=== PATIENT | male | born 1985 | race Caucasian/White ===

== ENCOUNTER 2017-01-05 04:39 | Emergency (ER) | payer MEDICARE, MEDICAID ==
[2017-01-05 05:44] LABS: PROTHROMBIN TIME (TEST) 10.4 SECONDS (9.5-11.5)
[2017-01-05 05:48] LABS: ALB/GLOB RATIO 1.4 (1.0-1.8); ALKALINE PHOSPHATASE 60 U/L (34-104); BUN - UREA NITROGEN 14 mg/dL (7-25); CALCIUM SERUM 9.5 mg/dL (8.6-10.3); CARBON DIOXIDE 25.6 mEq/L (21.0-31.0); CHLORIDE 105 mEq/L (98-107); CREATININE - SERUM 0.7 mg/dL (0.7-1.3); GLUCOSE 129 mg/dL (70-105); POTASSIUM SERUM 3.6 mEq/L (3.5-5.1); SGOT 18 U/L (13-39); SGPT/ALT 30 U/L (7-52); SODIUM SERUM 134 mEq/L (136-145)
[2017-01-05 05:49] LABS: % BASOPHILS 0.6 % (0.0-2.0); % EOSINOPHILS 4.8 % (0.0-5.0); % LYMPHOCYTES 30.9 % (20.0-50.0); % NEUTROPHILS 56.7 % (40.0-80.0); HEMATOCRIT 43.2 % (39.0-49.0); HEMOGLOBIN 14.8 gm/dL (13.2-17.3); MEAN CELL VOLUME 80.7 fl (80-99); MEAN CORPUSCULAR HEMOGLOBIN 27.6 pg (26.0-30.0); MEAN CORPUSCULAR HGB CONC 34.2 pg (28.0-36.0); MEAN PLATELET VOLUME 7.6 fl; NEUTROPHILE ABSOLUTE 7.2 Th/cmm (1.8-8.0); PLATELET COUNT 238 Th/cmm (150-400); RED BLOOD COUNT 5.35 Mil/cmm (4.30-5.70); RED CELL DISTRIBUTION WIDTH 12.8 % (11.5-20.0)
[2017-01-05 06:00] LABS: WHITE BLOOD COUNT 12.8 Th/cmm (4.8-10.8)
--- NOTE | 2017-01-05 06:28 | ED Physician Chart ---
Chief Complaint/HPI - Patient Information Date Seen:: 01/05/17 Time Seen:: 04:59 Chief Complaint:: SUICIDAL History of Present Illness:: THIS IS A 31 YO MALE WHO STATES THAT HE IS SUICIDAL AND WANTS TO KILL HIMSELF. HE HAS BEEN HERE MULTIPLE TIME FOR THE SAME REASON. HE DENIES HEAD PAIN, CHEST PAIN AND ABDOMINAL PAIN. Allergies:: Allergies Allergy/AdvReac Type Severity Reaction Status Date / Time No Known Allergies Allergy Verified 06/04/16 20:48 Vitals:: Vital Signs - 8 hr 01/05/17 04:51 Temp 98.3 F HR 71 RR 19 BP 132/76 O2 Sat % 99 Historian:: Patient Review:: Nurse's Note Reviewed, Old Chart Reviewed Review of Systems - Review of Systems General/Constitutional: No fever, No chills, No weight loss, No weakness, No diaphoresis, No edema, Loss of appetite Skin: No skin lesions, No rash, No bruising Head: No headache, No light-headedness Eyes: No loss of vision, No pain, No diplopia ENT: No earache, No nasal drainage, No sore throat, No tinnitus Neck: No neck pain, No swelling, No thyromegaly, No stiffness, No mass noted Cardio Vascular: No chest pain, No palpitations, No PND, No orthopnea, No edema Pulmonary: No SOB, No cough, No sputum, No wheezing GI: No nausea, No vomiting, No diarrhea, No pain, No melena, No hematochezia, No constipation, No hematemesis G/U: No dysuria, No frequency, No hematuria Musculoskeletal: No bone or joint pain, No back pain, No muscle pain Endocrine: No polyuria, No polydipsia Psychiatric: Prior psych history, No depression, No anxiety, Suicidal ideation Hematopoietic: No bruising, No lymphadenopathy Allergic/Immuno: No urticaria, No angioedema Neurological: No syncope, No focal symptoms, No weakness, No paresthesia, No headache, No seizure, No dizziness, No confusion, No vertigo Past Medical History - Past Medical History Obtainable: Yes Past Medical History: Thyroid disorder Family History: None Social History: Smoker, Alcohol, Illicit Drug Use, Lives With Parents Surgical History: None Psychiatricy History: Schizophrenia, Bipolar Medication: Reviewed Family Medical History - Family Member Mother History Unknown: Yes Ethnicity: Non- Living Status: Still Living Hx Family Cancer: No Hx Family Coronary Artery Disease: No Hx Family Congestive Heart Failure: No Hx Family Hypertension: No Hx Family Stroke: No Hx Family Diabetes: Yes Hx Family Seizures: No Hx Family Dementia: No Hx Family AIDS: No Hx Family HIV: No Hx Family COPD: No Hx Family Hepatitis: No Hx Family Psychiatric Problems: No Hx Family Tuberculosis: No Grandmother History Unknown: Yes Ethnicity: Non- Living Status: Unknown Hx Family Diabetes: Yes Physical Exam - Physical Examination General/Constitutional: Awake, Well-developed, well-nourished, Alert, No distress, GCS 15, Non-toxic appearing, Ambulatory Head: Atraumatic Eyes: Lids, conjuctiva normal, PERRL, EOMI Skin: Nl inspection, No rash, No skin lesions, No ecchymosis, Well hydrated, No lymphadenopathy ENMT: External ears, nose nl, Nasal exam nl, Lips, teeth, gums nl Neck: Nontender, Full ROM w/o pain, No JVD, No nuchal rigidity, No bruit, No mass, No stridor Respiratory: Nl effort/Exclusion, Clear to Auscultation, No Wheeze/Rhonchi/Rales Cardio Vascular: RRR, No murmur, gallop, rubs, NL S1 S2 GI: No tenderness/rebounding/guarding, No organomegaly, No hernia, Normal BS's, Nondistended, No mass/bruits, No McBurney tenderness : No CVA tenderness Extremities: No tenderness or effusion, Full ROM, normal strength in all extremities, No edema, Normal digits & nails Neuro/Psych: Alert/oriented, DTR's symmetric, Normal sensory exam, Normal motor strength, Normal gait, No focal deficits Other Neuro/Psych comments:: DEPRESSED MOOD Misc: normal gait, Normal back, No paraspinal tenderness Labs/Radiology/EKG Results - Lab Results Results: Laboratory Tests 01/05/17 01/05/17 01/05/17 05:10 05:10 05:10 WBC 12.8 H RBC 5.35 Hgb 14.8 Hct 43.2 MCV 80.7 MCH 27.6 MCHC Differential 34.2 RDW 12.8 Plt Count 238 MPV 7.6 Neutrophils % 56.7 Lymphocytes % 30.9 Monocytes % 7.0 Eosinophils % 4.8 Basophils % 0.6 PT 10.4 INR 1.00 Sodium 134 L Potassium 3.6 Chloride 105 Carbon Dioxide 25.6 Anion Gap 7.0 BUN 14 Creatinine 0.7 Est GFR ( Amer) > 60.0 Est GFR (Non-Af Amer) > 60.0 BUN/Creatinine Ratio 20.0 Glucose 129 H Calcium 9.5 Total Bilirubin 1.0 AST 18 ALT 30 Alkaline Phosphatase 60 Troponin I Total Protein 7.6 Albumin 4.4 Globulin 3.2 Albumin/Globulin Ratio 1.4 Salicylates Acetaminophen Ethyl Alcohol 01/05/17 01/05/17 01/05/17 05:10 05:10 05:10 WBC RBC Hgb Hct MCV MCH MCHC Differential RDW Plt Count MPV Neutrophils % Lymphocytes % Monocytes % Eosinophils % Basophils % PT INR Sodium Potassium Chloride Carbon Dioxide Anion Gap BUN Creatinine Est GFR ( Amer) Est GFR (Non-Af Amer) BUN/Creatinine Ratio Glucose Calcium Total Bilirubin AST ALT Alkaline Phosphatase Troponin I 0.01 Total Protein Albumin Globulin Albumin/Globulin Ratio Salicylates Acetaminophen < 10.0 L Ethyl Alcohol < 10 01/05/17 05:10 WBC RBC Hgb Hct MCV MCH MCHC Differential RDW Plt Count MPV Neutrophils % Lymphocytes % Monocytes % Eosinophils % Basophils % PT INR Sodium Potassium Chloride Carbon Dioxide Anion Gap BUN Creatinine Est GFR ( Amer) Est GFR (Non-Af Amer) BUN/Creatinine Ratio Glucose Calcium Total Bilirubin AST ALT Alkaline Phosphatase Troponin I Total Protein Albumin Globulin Albumin/Globulin Ratio Salicylates < 25.0 L Acetaminophen Ethyl Alcohol Assessment - Assessment General Assessment: SUICIDAL ED Septic Shock - . Is Septic Shock (SBP<90, OR Lactate>4 mmol\L) present?: No - <6hrs of presentation: Vital Signs: Vital Signs - 8 hr 01/05/17 04:51 Temp 98.3 F HR 71 RR 19 BP 132/76 O2 Sat % 99 Reassessment (Disposition) - Reassessment Reassessment Condition:: Unchanged - Diagnosis Diagnosis:: SUICIDAL - Patient Disposition Discussion with Medical Provider:: THIS PATIENT WILL BE CARED FOR BY DR. FRANCIS STARTING AT 0700 HRS. ED Discharge Plan - Patient Disposition Condition at Disposition: Unchanged Additional Instructions: THE PATIENT WILL NEED THE URINE FOR DRUG SCREEN BEFORE HE IS CLEARED MEDICALLY. DR. FRANCIS WILL CARE FOR THE PATIENT STARTING AT 0700 HRS.
--- NOTE | 2017-01-05 07:53 | ED Physician Chart ---
Chief Complaint/HPI - Patient Information Date Seen:: 01/05/17 Time Seen:: 07:00 Chief Complaint:: SUICIDAL IDEATION History of Present Illness:: This 31-year-old male drove himself to the hospital and complains of depression and wanting to commit suicide. He has had multiple prior attempts and currently he is thinking about killing himself with carbon monoxide. He denies any recent fever, chills, diaphoresis or acute illness. He has a past medical history of depression, hypothyroidism and hypertension. He denies any pain, nausea, vomiting or diarrhea. No respiratory distress, weakness or dizziness. Allergies:: Allergies Allergy/AdvReac Type Severity Reaction Status Date / Time No Known Allergies Allergy Verified 06/04/16 20:48 Vitals:: Vital Signs - 8 hr 01/05/17 01/05/17 04:51 07:01 Temp 98.3 F 98.2 F HR 71 66 RR 19 17 BP 132/76 127/83 O2 Sat % 99 98 Review of Systems - Review of Systems General/Constitutional: No fever, No chills, No diaphoresis, No edema Skin: No skin lesions, No bruising Head: No headache, No light-headedness Eyes: No loss of vision, No diplopia ENT: No earache, No sore throat, No tinnitus Neck: No neck pain, No thyromegaly, No stiffness, No mass noted Cardio Vascular: No chest pain, No palpitations, No edema Pulmonary: No SOB, No cough, No sputum, Other (no hemoptysis.) GI: No nausea, No vomiting, No diarrhea, No pain G/U: No dysuria, No frequency Lobby Concierge: No contraction Musculoskeletal: Bone or joint pain, No back pain, No muscle pain Endocrine: No polyuria Psychiatric: Prior psych history Neurological: No syncope, No weakness, No headache, No seizure, No confusion Family Medical History - Family Member Mother History Unknown: Yes Ethnicity: Non- Living Status: Still Living Hx Family Cancer: No Hx Family Coronary Artery Disease: No Hx Family Congestive Heart Failure: No Hx Family Hypertension: No Hx Family Stroke: No Hx Family Diabetes: Yes Hx Family Seizures: No Hx Family Dementia: No Hx Family AIDS: No Hx Family HIV: No Hx Family COPD: No Hx Family Hepatitis: No Hx Family Psychiatric Problems: No Hx Family Tuberculosis: No Grandmother History Unknown: Yes Ethnicity: Non- Living Status: Unknown Hx Family Diabetes: Yes Physical Exam - Physical Examination General/Constitutional: Well-developed, well-nourished, No distress Other Gen/Cons comments:: Patient very vague about why he is here and what his intentions are. No acute distress. Is not homeless and lives with a friend of his mother's. Head: Atraumatic Other Head comments:: No visible or palpable evidence of acute head injury. Eyes: Lids, conjuctiva normal, PERRL, EOMI Other Eyes comments:: No nystagmus and no scleral icterus. Skin: Nl inspection, No rash, No skin lesions, No ecchymosis, Well hydrated ENMT: External ears, nose nl, Nasal exam nl, Lips, teeth, gums nl, Oropharynx nl , Tonsils nl Neck: Nontender, No JVD, No nuchal rigidity, No mass Respiratory: Nl effort/Exclusion, Clear to Auscultation, No Wheeze/Rhonchi/Rales Cardio Vascular: RRR, No murmur, gallop, rubs, NL S1 S2 Other Cardio Vascular comments:: Good pulses all 4 extremities. GI: No tenderness/rebounding/guarding, No organomegaly, No hernia, Nondistended , No mass/bruits, No McBurney tenderness Other GI comments:: Rectal exam deferred at my discretion. : No CVA tenderness Extremities: No tenderness or effusion, normal strength in all extremities, No edema Other Extremities comments:: The patient was oriented to his name and the fact that he was in a hospital but he thinks that it September 2004. Neuro/Psych: DTR's symmetric, Normal sensory exam, Normal motor strength, No focal deficits Misc: Normal back, No paraspinal tenderness Labs/Radiology/EKG Results - Lab Results Results: Laboratory Tests 01/05/17 01/05/17 01/05/17 05:10 05:10 05:10 WBC 12.8 H RBC 5.35 Hgb 14.8 Hct 43.2 MCV 80.7 MCH 27.6 MCHC Differential 34.2 RDW 12.8 Plt Count 238 MPV 7.6 Neutrophils % 56.7 Lymphocytes % 30.9 Monocytes % 7.0 Eosinophils % 4.8 Basophils % 0.6 PT 10.4 INR 1.00 Sodium 134 L Potassium 3.6 Chloride 105 Carbon Dioxide 25.6 Anion Gap 7.0 BUN 14 Creatinine 0.7 Est GFR ( Amer) > 60.0 Est GFR (Non-Af Amer) > 60.0 BUN/Creatinine Ratio 20.0 Glucose 129 H Whole Bld Lactic Acid Calcium 9.5 Total Bilirubin 1.0 AST 18 ALT 30 Alkaline Phosphatase 60 Troponin I Total Protein 7.6 Albumin 4.4 Globulin 3.2 Albumin/Globulin Ratio 1.4 TSH Salicylates Acetaminophen Ethyl Alcohol 01/05/17 01/05/17 01/05/17 05:10 05:10 05:10 WBC RBC Hgb Hct MCV MCH MCHC Differential RDW Plt Count MPV Neutrophils % Lymphocytes % Monocytes % Eosinophils % Basophils % PT INR Sodium Potassium Chloride Carbon Dioxide Anion Gap BUN Creatinine Est GFR ( Amer) Est GFR (Non-Af Amer) BUN/Creatinine Ratio Glucose Whole Bld Lactic Acid Calcium Total Bilirubin AST ALT Alkaline Phosphatase Troponin I 0.01 Total Protein Albumin Globulin Albumin/Globulin Ratio TSH 3.22 Salicylates Acetaminophen Ethyl Alcohol < 10 01/05/17 01/05/17 01/05/17 05:10 05:10 06:16 WBC RBC Hgb Hct MCV MCH MCHC Differential RDW Plt Count MPV Neutrophils % Lymphocytes % Monocytes % Eosinophils % Basophils % PT INR Sodium Potassium Chloride Carbon Dioxide Anion Gap BUN Creatinine Est GFR ( Amer) Est GFR (Non-Af Amer) BUN/Creatinine Ratio Glucose Whole Bld Lactic Acid 1.06 Calcium Total Bilirubin AST ALT Alkaline Phosphatase Troponin I Total Protein Albumin Globulin Albumin/Globulin Ratio TSH Salicylates < 25.0 L Acetaminophen < 10.0 L Ethyl Alcohol ED Septic Shock - <6hrs of presentation: Vital Signs: Vital Signs - 8 hr 01/05/17 01/05/17 04:51 07:01 Temp 98.3 F 98.2 F HR 71 66 RR 19 17 BP 132/76 127/83 O2 Sat % 99 98 Reassessment (Disposition) - Reassessment Reassessment Condition:: Improved - Diagnosis Diagnosis:: DISCHARGE DIAGNOSIS: DEPRESSION FOLLOW UP WITH YOUR PRIVATE PSYCHIATRIST. RETURN TO THE ER IF YOUR SYMPTOMS WORSEN. ED Discharge Plan - Patient Disposition Admit/Discharge/Transfer: PT DISCHARGED HOME Condition at Disposition: Improved Instructions: Persistent Depressive Disorder Additional Instructions: . Pt to follow up with psychiatrist Dr Nolan.
[2017-01-05 11:13] LABS: URINE BILIRUBIN NEGATIVE (NEGATIVE); URINE COLOR YELLOW; URINE GLUCOSE (UA) NEGATIVE (NEGATIVE); URINE KETONE TRACE mg/dL (NEGATIVE)
[2017-01-05 11:14] LABS: URINE BACTERIA OCCASIONAL /hpf (NONE SEEN); URINE BLOOD NEGATIVE (NEGATIVE); URINE EPITHELIAL CELLS RARE /lpf (FEW); URINE PH 5.5; URINE PROTEIN NEGATIVE (NEGATIVE); URINE RBC NONE SEEN /hpf (0-5); URINE UROBILINOGEN 0.2 E.U./dL (0.2 - 1.0); URINE WBC 0-2 /hpf (0-5)
[2017-01-05 11:15] LABS: AMPHETAMINE URINE POSITIVE (NEGATIVE); BARBITURATES URINE NEGATIVE (NEGATIVE); METHADONE URINE NEGATIVE (NEGATIVE)
== END 2017-01-05 11:40 | disposition home or self-care (01) ==
LOC: ER 04:39
DX: R45.851 Suicidal ideations (principal); E07.9 Disorder of thyroid, unspecified; F20.9 Schizophrenia, unspecified; F17.200 Nicotine dependence, unspecified, uncomplicated
CPT/HCPCS: 99284; 96372; 84484; 36415; 83605; 80307; 84443; 86592; 85025; 85610; 81001; 80329 ×2; 80320; 80053; 87040; J0696; Z7502